=== PATIENT | male | born 1995 | race Caucasian/White ===

== ENCOUNTER 2017-12-03 15:09 | Emergency (ER) | payer SELFPAY ==
[~2017-12-03] VITALS: Ht 182.9 cm; Wt 74.8 kg
[2017-12-03] MEDS ORDERED: Augmentin 875-1 EACH PO (16:37)
== END 2017-12-03 16:49 | disposition home or self-care (01) ==
LOC: ER 15:09
DX: J32.9 Chronic sinusitis, unspecified (principal); Z88.8 Allergy status to other drugs, medicaments and biological substances; F17.210 Nicotine dependence, cigarettes, uncomplicated
CPT/HCPCS: 99282